=== PATIENT | male | born 1975 | race Caucasian/White ===

== ENCOUNTER → 2023-09-20 08:19 | Outpatient (BNVA) | payer MEDICAID, SELFPAY | PROVIDERS: Visit Provider Surgery | DX: L72.3 Sebaceous cyst; L08.9 Local infection of the skin and subcutaneous tissue, unspecified | CPT/HCPCS: 87070; 87075; 87205 ==

== ENCOUNTER 2023-10-16 14:42 | Emergency (ER) | payer MEDICAID, SELFPAY ==
--- NOTE | 2023-10-16 14:46 | XRR_ITS ---
PROCEDURE INFORMATION: Exam: XR Chest Exam date and time: 10/16/2023 4:02 PM Age: 47 years old Clinical indication: Patient HX: PT arrives pov with chief complaint of shortness of breath since Tuesday. PT states HX of asthma, states hasnt had an attack in years, does not have a rescue inhaler anymore. States feels like an asthma attack; Additional info: SOB TECHNIQUE: Imaging protocol: Radiologic exam of the chest. Views: 1 view. COMPARISON: No relevant prior studies available. FINDINGS: Lungs: Unremarkable. No consolidation or mass. Pleural spaces: Unremarkable. No pleural effusion. No pneumothorax. Heart/Mediastinum: Unremarkable. No cardiomegaly. Bones/joints: Unremarkable. XR/XR chest 1V portable [id number] IMPRESSION: No acute findings.
[2023-10-16 14:47] VITALS: BP 183/103; PULSE 100; RESP 17; TEMP 36.7; O2SAT 91
[2023-10-16 16:01] VITALS: PULSE 97; RESP 16; O2SAT 90
--- NOTE | 2023-10-16 16:02 | W.ED.ASTHMA ---
HPI - Asthma General: Chief Complaint: Asthma Stated Complaint: low O2, sob Time Seen by Provider: 10/16/23 15:56 History of Present Illness: 47-year-old male patient comes in today with complaints of shortness of breath. Patient has a history of asthma as a child. Patient reports since Tuesday he has been feeling more short of breath and feel like he just cannot take a deep breath. Patient is a regular tobacco smoker. Patient denies any routine medications or inhaler use. Patient appears nontoxic. Review of Systems General: Reports: 10 or more systems reviewed and unremarkable except in HPI and below Resp: Reports: dyspnea PFSH ED PFSH: Family History Mother Cancer breast Sister Diabetes Social History Smoking and tobacco/nicotine status: current every day tobacco/nicotine user cigarettes Alcohol intake: never Physical Exam Const: COMMON NORMALS: alert HENMT: COMMON NORMALS: normocephalic HEAD & SCALP: normocephalic Neck/C-Spine: COMMON NORMALS: full ROM Resp: COMMON NORMALS: normal respiratory effort and clear to auscultation bilaterally AUSCULTATION: clear to auscultation bilaterally Cardio: COMMON NORMALS: regular rate and regular rhythm RATE: regular rate RHYTHM: regular rhythm GI: COMMON NORMALS: non-tender Back/Pelvis: COMMON NORMALS: thoracic and lumbar spine normal to inspection Extremity: COMMON NORMALS: no pedal edema Neuro: SENSORIUM/ORIENTATION: Yes alert Skin: COMMON NORMALS: turgor normal GENERAL SKIN EXAM: turgor normal Course Vital Signs: Vital signs: Vital Signs Temperature 98.0 F 10/16/23 14:47 Pulse Rate 95 10/16/23 16:30 Respiratory Rate 20 H 10/16/23 16:30 Blood Pressure 183/103 10/16/23 14:47 Pulse Oximetry 89 L 10/16/23 16:30 Oxygen Delivery Me thod Room Air 10/16/23 16:30 MDM - Asthma Medical Decision Making 47-year-old male patient comes in today with some increased shortness of breath for the last 2 to 3 days. Patient does have a history of asthma as a child and is a tobacco smoker. On exam patient appears in no respiratory distress. Patient is able to speak full sentences. Lungs are decreased throughout. Occasional inspiratory wheezes noted. No edema is noted in extremities. Vital signs normal except for some elevated blood pressure at 183/103. Differential diagnosis includes not limited to asthma exacerbation, pneumonia, CHF. Blood pressure came down to 159 systolic. Patient's oxygen saturation goes to 92% with conversation. When patient is resting it does drop into the 87-89 range. This is increased with movement and activity. Patient is obese which may be causing some of this issue with his oxygen saturation. Will start patient on steroids and antibiotic for respiratory infection and asthma exacerbation. Patient was also given albuterol inhaler to help with aeration of lung breaux. Recommended follow-up with primary care in 2 to 3 days or return to the ED for worsening symptoms. Patient reported understanding and agreed to plan. Patient was stable and discharged home. Lab Data Radiology Impressions Chest X-Ray 10/16/23 14:46 IMPRESSION: No acute findings. All radiology interpretation(s) finalized by discharge Discharge Plan Discharge Patient Disposition: Home Clinical Impression: Asthma with acute exacerbation Qualifiers: Asthma severity: mild Asthma persistence: intermittent Qualified Code(s): J45.21 - Mild intermittent asthma with (acute) exacerbation Condition: Stable Prescriptions: New albuterol sulfate 90 mcg/actuation HFA aerosol inhaler 2 inh inhalation Q4H PRN (Reason: shortness of breath or wheezing) Qty: 8.5 1RF prednisone 20 mg tablet 20 mg PO BID 5 Days Qty: 10 0RF amoxicillin-pot clavulanate 875-125 mg tablet 1 tab PO BID Qty: 14 0RF Discharge Orders: Discharge ED (Routine); Ordered 10/16/23 Ordered By: Jeremy Aguiar Referrals: Mark Carbajal MD [Primary Care Provider] - Discharge Diet: Usual diet Discharge Activity: Increase activity as tolerated Patient Instructions: Asthma (ED) Activity Restrictions/Additional Instructions: Try to stop smoking. Take antibiotic and steroid as directed. Use inhaler 2 puffs at least 4 times a day for the next 3 to 5 days to help with aeration of the lung breaux. Follow-up with primary care in 3 days for recheck. Return to ED for worsening symptoms such as severe chest pain, worsening shortness of breath, or new concerns. Coding Level of Care Code ED Dining Chair Seat Cushion Trimmer for Mireille Stacy
[2023-10-16] MEDS: dexamethasone 10 mg/mL INJ IM (16:22)
[2023-10-16 16:30] VITALS: PULSE 95; RESP 20; O2SAT 89
[2023-10-16] MEDS: ipratropium-albuterol 3 mL Neb INHALATION (16:30)
--- NOTE | 2023-10-16 16:40 | ECG_ITS ---
[facility] Test Date: 2023-10-16 Pat Name: Nestor Diallo Department: Room: Gender: Male Welt Stitcher: : 1975 Requested By: Javier Devi Order Number: [id number] George MD: Charlotte Nevarez M.D. Measurements Intervals [place] Rate: 97 P: 45 TN: 159 QRS: -28 QRSD: 92 T: 45 QT: 362 QTc: 461 Interpretive Statements SINUS RHYTHM BORDERLINE LEFT AXIS DEVIATION [QRS AXIS < -20] No previous ECG available for comparison Electronically Signed On 10-16-2023 22:51:53 CDT by Charlotte Nevarez M.D. [id number]
[2023-10-16 17:16] VITALS: BP 159/103; PULSE 94; RESP 16; O2SAT 90
== END 2023-10-16 17:17 | disposition home or self-care (01) ==
PROVIDERS: Emergency Provider Nurse Practitioner Family; PCP Family Medicine
DX: J45.21 Mild intermittent asthma with (acute) exacerbation (principal); F17.210 Nicotine dependence, cigarettes, uncomplicated
CPT/HCPCS: 71045; 93005; 94640; 96372; 99284; J1100

== ENCOUNTER → 2023-11-09 08:53 | Outpatient (BNVA) | payer MEDICAID, SELFPAY | PROVIDERS: PCP Family Medicine; Visit Provider Surgery | DX: L02.212 Cutaneous abscess of back [any part, except buttock and flank] (principal); L72.3 Sebaceous cyst; L08.9 Local infection of the skin and subcutaneous tissue, unspecified; Z51.81 Encounter for therapeutic drug level monitoring; Z79.1 Long term (current) use of non-steroidal anti-inflammatories (NSAID) | CPT/HCPCS: 36415; 80048; 83036; 85025 ==

== ENCOUNTER 2023-11-28 08:32 | Day surgery (SDC) | payer MEDICAID, SELFPAY ==
[2023-11-28] VITALS (10 sets, daily range): BP systolic 127–174; BP diastolic 86–109; PULSE 82–91; RESP 15–22; TEMP 36.2–36.6; O2SAT 90–100; BMI 51.6
--- NOTE | 2023-11-28 05:52 | P.HPUD_ITS ---
Surgery/Procedure H&P Update DATE OF PROCEDURE: November 28, 2023 DATE H&P PERFORMED: 11/09/23 H&P UPDATE INFORMATION: I have reviewed H&P completed within last 30 days, I have examined patient prior to procedure, No changes to prior documentation and H&P is in [facility] EMR on date indicated PLANNED PROCEDURE: Operation Date: 11/28/23 10:25 Proposed Procedures p Excision Mass/Lesion/Cyst Upper Torso/excision of upper back mass 25197, L72.3(Not Applicable) - Guy Waddell MD
[2023-11-28] MEDS: sodium chloride 0.9% 1,000 ML 30 ML IV (09:13)
--- NOTE | 2023-11-28 09:17 | ANES.PREANE2 ---
Pre-Anesthetic Assessment Height/Weight: Height 1.68 m Weight 145.15 kg Temp Pulse Resp BP Pulse Ox O2 Del Method 97.7 F 82 18 174/109 94 Room Air 11/28/23 08:47 11/28/23 08:47 11/28/23 08:47 11/28/23 08:47 11/28/23 08:47 11/28/23 08:48 Operation Date: 11/28/23 10:25 Proposed Procedures p Excision Mass/Lesion/Cyst Upper Torso/excision of upper back mass 91886, L72.3(Not Applicable) - Guy Waddell MD Familial anesthetic complications: none Was Beta Iram taken within 24 hours: N/A Was Clonidine taken within 24 hours: N/A Last intake: Intake Last Liquid Date 11/27/23 Last Liquid Time 22:00 Last Solid Date 11/27/23 Last Solid Time 19:00 Social Tobacco and No alcohol Exam alert, oriented x 3 and regular rate & rhythm Airway Submandibular: within normal limits Cervical ROM: within normal limits Mallampati: Class II Dentition: chipped Pulmonary Chronic Obstructive Pulmonary Disease CV/HEM Hypertension Metabolic Morbid Obesity Anesthetic Plan ASA status: 3 Anesthesia: Choice Medications/Allergies Home Medications Medication Instructions Recorded Confirmed Last Taken Type albuterol sulfate 90 mcg/actuation 2 inh inhalation Q4H PRN shortness 10/16/23 11/25/23 2 Days Ago Rx aerosol inhaler of breath or wheezing #8.5 grams ~11/23/23 Allergies Allergy/AdvReac Type Severity Reaction Status Date / Time No Known Allergies Allergy Verified 11/25/23 12:28 Current Medications Generic Name Dose Route Start Last Admin Trade Name Freq PRN Reason Stop Dose Admin Sodium Chloride 1,000 mls @ 30 mls/hr 11/28/23 08:45 11/28/23 09:13 Sodium Chloride 0.9% IV 11/29/23 08:44 30 mls/hr .Q24H IRVIN Administration PFSH Anesthesia Family History Mother Cancer breast Sister Diabetes Social History Smoking and tobacco/nicotine status: current every day tobacco/nicotine user cigarettes Alcohol intake: never Data Anesthesia Cardiac Studies: No Data to Display
[2023-11-28] MEDS: ceFAZolin 2,000 MG in sodium chloride 0.9% (plus) 50 ML 100 MG IV (10:48)
[2023-11-28] MEDS: ceFAZolin 1,000 mg SDV 1000 MG IVP (10:48)
[2023-11-28] MEDS: lidocaine-epi 1% PF 1:200,000 30 mL SDV 10 ML INJECTION (11:36)
[2023-11-28] MEDS: BUPivacaine 0.25% INJ 10 mL INJECTION (11:36)
--- NOTE | 2023-11-28 12:10 | P.OP_ITS ---
Operative Report Date of procedure: November 28, 2023 Pre-op diagnosis: Sebaceous cyst of the upper back Post-op diagnosis: Same Post-op findings: There was a open sebaceous cyst of the Interval with the subcutaneous track of about 3 cm. Total measurement of the cyst was 4.5 x 3 cm Procedure done: Excision of upper back cyst Specimens removed/disposition: Upper back mass Surgeon: Guy Waddell MD Custom Bookbinder: HARLEY OR STaff Estimated blood loss: 10 Complications: none Brief History: This is a 48-year-old male who has history of an infected upper back cyst that underwent incision and drainage, he received wound care for several weeks wit hout complete healing of the skin and during her last visit it was noticed that the cavity had started to epithelialize and therefore we decided to proceed to the OR for excision after discussion of all risk and benefits. Procedure: Patient was brought into the OR, general anesthesia was given. He was placed in a prone position. The upper back was prepped and draped in usual sterile fashion. Timeout was conducted. An elliptical incision involving the whole cyst cavity was done this incision measuring about 7 cm. With sharp dissection I circumferentially dissected the cyst from the surrounding tissues until the cyst was completely liberated, the specimen was passed to the OR table to be sent to pathology. Hemostasis was achieved with electrocautery. No residual cyst tissue was noted on the wound bed. The wound was irrigated. The wound was then closed in layers, this was a complex wound closure requiring several layers using #2-0 Vicryl for the deep layers, #3-0 Vicryl for the subcutaneous tissue #3-0 nylon for the skin. Steri-Strips were then applied and a compression dressing was placed. The patient tolerated well the procedure, he was extubated and transferred to PACU in stable condition.
[2023-11-28] MEDS: oxyCODONE 5 mg IR Tab/Cap PO (13:05)
--- NOTE | 2023-11-28 15:55 | ANE.PACU2 ---
Inpatient post-anesthesia follow up: Airway intact: Yes Vital signs: Temperature 97.8 F Pulse Rate 91 Respiratory Rate 18 Blood Pressure 137/97 Pulse Oximetry 93 Oxygen Delivery Me thod Room Air Oxygen Flow Rate 8 Fraction of Inspir ed Oxygen Hydration adequate: Yes Nausea and vomiting: No Pain level: 2 Mental status: Baseline
== END 2023-11-28 13:24 | disposition home or self-care (01) ==
PROVIDERS: PCP Family Medicine; Visit Provider Surgery
PROC: (CPT 11403; principal; 2023-11-28 10:15)
DX: L72.0 Epidermal cyst (principal); J44.9 Chronic obstructive pulmonary disease, unspecified; I10 Essential (primary) hypertension; E66.01 Morbid (severe) obesity due to excess calories; Z68.43 Body mass index [BMI] 50.0-59.9, adult; F17.210 Nicotine dependence, cigarettes, uncomplicated
CPT/HCPCS: 11403; 13101; 88307; J0330; J0690; J1100; J2250; J2405; J2704; J2710; J3010; J3490; J7030